=== PATIENT | female | born 1985 | race Hispanic/Latino ===

== ENCOUNTER 2016-07-27 12:02 | Emergency (ER) | payer SELFPAY ==
[~2016-07-27] VITALS: Ht 157.5 cm; Wt 56.4 kg
[~2016-07-27 12:02] MED LIST: DOCU-41 PO; IBUP800T28 PO
[2016-07-27 12:35] VITALS: BP 93/60; PULSE 59; RESP 16; O2SAT 99
[2016-07-27 13:42] LABS: BASOPHILS % (AUTO) 0.7 % (0-3); EOSINOPHILS % (AUTO) 1.3 % (0-5); MONOCYTES % (AUTO) 6.3 % (4-12); Mean Corpuscular Hemoglobin 27.4 pg (27.0-35.0); Mean Corpuscular Volume 81.5 fL (81-100); NEUTROPHILS % (AUTO) 53.1 % (40-74); Platelet Count 267 bil/L (150-400)
[2016-07-27 13:59] LABS: APPEARANCE,URINE HAZY (CLEAR,HAZY); COLOR,URINE YELLOW (YELLOW); OCCULT BLOOD,URINE MODERATE (NEGATIVE); PH,URINE 5.5 (5.0-8.0)
[2016-07-27 14:00] LABS: UROBILINOGEN,URINE NORMAL (NORMAL)
[2016-07-27 14:03] LABS: Magnesium 1.9 mg/dL (1.6-2.6)
--- NOTE | 2016-07-27 14:31 | ED.REPORT ---
HPI-Abd Pain F Under 42 Date of Service Jul 27, 2016 ED Provider: Cali Seaman MD Rhonda ChrisNikkoTee, a 30 year old Thai-speaking female presents to the ED accompanied by her and children complaining of abdominal pain onset 2 weeks ago. Patient denies vomiting, fever, vaginal bleeding, vaginal discharge, or back pain. She does not voice any further medical complaints. Nursing Notes Stated Complaint: ABDOMINAL PAIN Chief Complaint: Female Abdominal Pain Nursing Notes Reviewed: Yes Allergies: Coded Allergies: No Known Allergies (Unverified , 03/30/16) Scheduled Ciprofloxacin (Ciprofloxacin) 500 Mg Tablet 500 MG PO BID Scheduled PRN Docusate Sodium (Colace) 100 Mg Capsule 100 MG PO DAILY PRN PRN For Constipation Ibuprofen (Ibuprofen) 800 Mg Tablet 800 MG PO Q6H PRN PRN For Pain General Time Seen by MD: 14:30 Chief Complaint Abdominal pain Hx Obtained From: Patient Arrived By: Walk-in Sudden in Onset?: No Onset Occurred: More than a week ago... (2 weeks) Symptom Duration: Since onset Progression since Onset: Unchanged Location: : Abdomen lower Quality: Painful Severity: Current: Moderate Severity: Maximum: Moderate Associated with: Denies: Back pain, Diarrhea, Fever, Nausea, Vomiting Pertinent Negative: Pt denies other symptoms Similar Sx Previous: Yes Past Medical History Past Medical History Reports: Urinary tract infection Past Surgical History Reports: Cholecystectomy Smoking History Never Smoker Review of Systems Constitutional: Denies: Fever GI: Reports: Abdominal pain, Denies: Vomiting Female: Denies: Vaginal bleeding - abnl, Vaginal discharge Musculoskeletal: Denies: Back pain Complete sys rev & neg: except as marked. Physical Exam Initial Vital Signs Vital Signs (First) Date Time Temp Pulse Resp B/P Pulse Ox O2 Delivery O2 Flow Rate FiO2 07/27/16 12:35 36.1 59 16 93/60 99 Room Air Initial VS: Reviewed Head / Eyes: Atraumatic, Normocephalic Neck: Supple, Non-tender, Full range of motion Extremities: Vascular intact, Neuro intact, No swelling, No tenderness Skin: Warm, Dry, No cyanosis Neurologic: Alert, Oriented, Nonfocal Psychiatric: Mood/affect normal, Behavior normal, Normal thought content General/Constitutional: Awake, Alert Abdomen: Soft, No guarding, No rebound Tenderness/Guarding/Rebound: Positive: Tender suprapubic Back: Full range of motion, No CVA tenderness Interpretation & Diagnostics Lab Results Interpretation Result Diagram: 07/27/16 1335 07/27/16 1335 Test 07/27/16 13:25 07/27/16 13:35 Urine Color Yellow (YELLOW) Urine Appearance Hazy (CLEAR,HAZY) Urine pH 5.5 (5.0-8.0) Urine Specific [place] 1.030 (1.003-1.035) Urine Protein Negativemg/dL (NEG,TRACE) Urine Glucose (UA) Negativemg/dL (NEGATIVE) Urine Ketones Negativemg/dL (NEGATIVE) Urine Occult Blood Moderate (NEGATIVE) Urine Nitrite Negative (NEGATIVE) Urine Bilirubin Negative (NEGATIVE) Urine Urobilinogen Normalmg/dL (NORMAL) Urine Leukocyte Esterase Trace (NEGATIVE) Urine RBC 3-10/hpf (0-2) Urine WBC 6-10/hpf (0-5) Urine Epithelial Cells Many/hpf (NONE-MOD) Urine Crystals None seen (NONE SEEN) Urine Bacteria Few/hpf (NONE-FEW) Urine Hyaline Casts None/lpf (NONE) Urine Granular Casts None seen (NONE SEEN) Urine Waxy Casts None seen (NONE SEEN) Urine Red Blood Cell Casts None seen (NONE SEEN) Urine White Blood Cell Casts None seen (NONE SEEN) Urine Mucus Present (None Seen) Urine Trichomonas None seen (NONE SEEN) Urine Yeast None (NONE SEEN) Urinalysis Comment None Urine Culture Reflexed Indicated Hold Urine Received (Received) White Blood Count 5.6th/mm3 (3.8-10.1) Red Blood Count 4.64mil/mm3 (3.90-5.20) Hemoglobin 12.7g/dL (12.0-15.6) Hematocrit 37.8% (35.0-46.0) Mean Corpuscular Volume 81.5fL (81-100) Mean Corpuscular Hemoglobin 27.4pg (27.0-35.0) Mean Corpuscular Hemoglobin Concent 33.6% (32.0-37.0) Red Cell Distribution Width 16.4% (12.3-15.4) Platelet Count 267bil/L (150-400) Neutrophils (%) (Auto) 53.1% (40-74) Lymphocytes (%) (Auto) 38.4% (14-46) Monocytes (%) (Auto) 6.3% (4-12) Eosinophils (%) (Auto) 1.3% (0-5) Basophils (%) (Auto) 0.7% (0-3) Sodium Level 134mEq/L (134-144) Potassium Level 3.7mEq/L (3.5-5.2) Chloride Level 102mEq/L (97-108) Carbon Dioxide Level 21mmol/L (18-29) Blood Urea Nitrogen 7mg/dL (6-20) Creatinine 0.42mg/dL (0.57-1.00) Estimat Glomerular Filtration Rate 257mL/min (>59) Glucose Level 84mg/dL (60-99) Calcium Level 8.5mg/dL (8.5-10.1) Magnesium Level 1.9mg/dL (1.6-2.6) Total Bilirubin 0.5mg/dL (0.0-1.2) Aspartate Amino Transf (AST/SGOT) 14U/L (0-50) Alanine Aminotransferase (ALT/SGPT) 15U/L (0-32) Alkaline Phosphatase 72U/L (25-150) Total Protein 6.9g/dL (6.4-8.4) Albumin 4.2g/dL (3.4-5.0) Lipase 29U/L (13-60) Hold Granado Top Tube Received (Received) Re-Eval/Medical Decision Med Decision/Clinical Course Med Decision/Clinical Course: 30-year-old female suprapubic pain 2 weeks. Urine positive UTI. Negative . Abdomen soft. We will treat for UTI 7 days. Ciprofloxacin. Return precautions given. Counseled Regarding: Diagnosis, Lab results, Need for follow-up, When/why to return to ED Discharge & Departure Primary Impression: UTI (urinary tract infection) Disposition: Home Discharge Condition All VS Reviewed: Yes Condition: Stable Patient Instructions: Urinary Tract Infection in Women (DC) Additional Instructions: Take antibiotics as counseled and follow up with your primary care provider in two days. Return to the emergency department if you experience any vomiting, worsening abdominal pain, worsening back pain, fever or any other worsening symptoms. Referrals: NOPCP (PCP) Scribe Attestation Portions of this note were transcribed by Ricco Husain and Antonio Grey. I, Dr. Seaman personally performed the history, physical exam and medical decision-making; I reviewed and confirmed the accuracy of the information in the transcribed note. Signed by: Mike Sidhu, 07/27/2016 and 1503. Signed by: Mike Ricardo, 07/27/2016 - 15:14 Cali Seaman MD Jul 27, 2016 14:31 Ricco Husain Jul 27, 2016 14:55 ANTONIO GREY Jul 27, 2016 15:03
[2016-07-27] MEDS ORDERED: CIPR-198 PO (14:40)
[2016-07-27 15:18] VITALS: PULSE 62; O2SAT 97
== END 2016-07-27 14:55 | disposition home or self-care (01) ==
LOC: SED 12:02
DX: N39.0 Urinary tract infection, site not specified (principal); Z79.3 Long term (current) use of hormonal contraceptives